=== PATIENT | female | born 1975 | race Caucasian/White ===

== ENCOUNTER 2016-11-19 01:58 | Emergency (ER) | payer OTHER | END 2016-11-19 03:55 | disposition home or self-care (01) | LOC: ER 01:58 | DX: R55 Syncope and collapse (principal) | CPT/HCPCS: 36415 ==

== ENCOUNTER 2017-02-22 01:18 | Emergency (ER) | payer OTHER | END 2017-02-22 03:45 | disposition home or self-care (01) | LOC: ER 01:18 | DX: F12.10 Cannabis abuse, uncomplicated (principal); F15.10 Other stimulant abuse, uncomplicated; F11.10 Opioid abuse, uncomplicated; D64.9 Anemia, unspecified | CPT/HCPCS: 36415; 51701; 80307; 96361; 96374; G0480 ==